=== PATIENT | female | born 1965 | race Caucasian/White ===

== ENCOUNTER 2017-10-11 08:14 | Emergency (ER) | payer BC ==
[2017-10-11 08:26] VITALS: BP 141/82
--- NOTE | 2017-10-11 08:47 | UC ---
Respiratory Complaint HPI - HPI Summary HPI Summary: Patient presents with a past medical history of allergies, she does receive allergy shots. She presents today with 3-5 day onset complaints of sinus pain, pressure and post nasal drip, sore throat, and now chest congestion, and productive cough. She is taking Claritin in the morning and Benadryl at bedtime for her symptoms. She states however that her symptoms continue to get worse. She denies any fever, chills, chest pain, shortness of breath. - History of Current Complaint Chief Complaint: UCGeneralIllness Stated Complaint: SINUS AND CHEST CONGESTION Time Seen by Provider: 10/11/17 08:34 Hx Obtained From: Patient Hx Last Menstrual Period: hysterectomy ?: No Onset/Duration: Gradual Onset, Lasting Days Severity Initially: Mild Severity Currently: Moderate Pain Intensity: 5 Character: Cough: Productive Aggravating Factors: Nothing Alleviating Factors: Nothing Associated Signs And Symptoms: Positive: URI, Nasal Congestion, Sinus Discomfort - Risk Factors Pulmonary Embolism Risk Factors: Negative Cardiac Risk Factors: Negative Pseudomonas Risk Factors: Negative Tuberculosis Risk Factors: Negative - Allergies/Home Medications Allergies/Adverse Reactions: Allergies Allergy/AdvReac Type Severity Reaction Status Date / Time cefuroxime [From Ceftin] Allergy Rash And Verified 10/11/17 08:27 Itching Home Medications: Home Medications Citalopram TAB* [Celexa TAB*] 20 mg PO DAILY 10/11/17 [History Confirmed ] Fexofenadine (NF) [Radha 180 (NF)] 180 mg PO DAILY 10/11/17 [History Confirmed 10/11/17] Montelukast Sodium TAB* [Singulair 10 MG TAB*] 10 mg PO DAILY 10/11/17 [History Confirmed 10/11/17] PMH/Surg Hx/FS Hx/Imm Hx Previously Healthy: Yes Other History Of: Negative For: HIV, Hepatitis B, Hepatitis C, Anticoagulant Therapy - Surgical History Surgical History: Yes Surgery Procedure, Year, and Place: hysterectomy 2009. oral surgery. gall bladder removal - Family History Known Family History: Positive: Hypertension - Social History Occupation: Retired Lives: Alone Alcohol Use: None Substance Use Type: None Smoking Status (MU): Never Smoked Tobacco Review of Systems Constitutional: Negative Skin: Negative Eyes: Negative ENT: Sore Throat, Ear Ache, Nasal Discharge, Sinus Congestion, Sinus Pain/ Tenderness Respiratory: Negative Cardiovascular: Negative Gastrointestinal: Negative Genitourinary: Negative Motor: Negative Neurovascular: Negative Musculoskeletal: Negative Neurological: Negative Psychological: Negative Is Patient Immunocompromised?: No All Other Systems Reviewed And Are Negative: Yes Physical Exam Triage Information Reviewed: Yes Appearance: Well-Appearing Vital Signs: Initial Vital Signs Temp 97.9 F 10/11/17 08:22 Pulse 95 10/11/17 08:22 Resp 18 10/11/17 08:22 BP 141/82 10/11/17 08:22 Pulse Ox 97 10/11/17 08:22 Vital Signs Reviewed: Yes Eye Exam: Normal ENT: Positive: Nasal congestion, Nasal drainage, Sinus tenderness Neck exam: Normal Respiratory Exam: Normal Cardiovascular Exam: Normal Abdominal Exam: Normal Musculoskeletal Exam: Normal Skin Exam: Normal UC Diagnostic Evaluation - Laboratory O2 Sat by Pulse Oximetry: 97 Respiratory Course/Dx - Course Course Of Treatment: Patient presents with an exacerbation of her seasonal allergies, with assoicated sinusitis. She has normal vital signs, and was in no extremous. She was prescribed augmentin 500 mg bid x 10 days, and prednisone 20 mg by mouth bid x 5 days. I also recommend that she use nasonex nasal spray. If her symptoms worsen, persist, or new symtpoms devloped she was told to follow up with her PCP, or [employer]. - Differential Dx/Diagnosis Differential Diagnosis/HQI/PQRI: Sinusitis, Other - allergic rhinitis Provider Diagnoses: allergic rhinitis. sinusitis Discharge - Sign-Out/Discharge Documenting (check all that apply): Discharge/Admit/Transfer - Discharge Plan Condition: Stable Disposition: HOME Prescriptions: Amoxicillin/Clavulanate TAB* [Augmentin TAB 500 mg*] 500 mg PO BID #20 tab predniSONE TAB* [Deltasone TAB*] 20 mg PO BID #10 tab Patient Education Materials: Sinusitis (ED) Referrals: Tiffanie Pham MD [Primary Care Provider] - - Billing Disposition and Condition Condition: STABLE Disposition: HOME
== END 2017-10-11 08:45 | disposition home or self-care (01) ==
LOC: UCEAST 08:14
DX: J30.9 Allergic rhinitis, unspecified (principal); J32.9 Chronic sinusitis, unspecified; Z88.1 Allergy status to other antibiotic agents
CPT/HCPCS: 99212; G0463

== ENCOUNTER 2019-05-31 17:57 | Emergency (ER) | payer BC ==
--- OUTSIDE RECORDS SUMMARY | 2019-05-31 18:03 | XMS REPORT | Continuity of Care Document ---
:1965 External Reference #:[id number] Author Name Anjali Polk MD Address [address] [place] [address] Problems Active Problems Provider Date Diverticular disease of colon Onset: 12/05/2015 Allergic rhinitis Onset: 06/23/2014 Social History Type Date Description Comments Sex Unknown Tobacco Use Start: Unknown End: Unknown Patient is a former smoker Smoking Status Reviewed: 05/30/19 Patient is a former smoker Allergies, Adverse Reactions, Alerts Active Allergies Reaction Severity Comments Date Ceftin No Reaction Indicated 02/04/2019 Medications Active Medications SIG Qnty Indications Ordering Provider Date Ipratropium [place] take 2 sprays in 15ml J06.9 Anjali Polk, 05/30/2019 each nostril 0.06% Solution every 6 hours as needed Venlafaxine HCL ER 1 daily oral 90tabs JENNIFER Aly 07/16/2018 75mg Tablets ER 24HR Montelukast Sodium Oral; Take 1 90tabs Unknown 06/14/2018 10mg Tablet Daily Tablets Zyrtec Allergy 1 daily Oral Unknown 05/19/2018 10mg Capsules Immunizations CPT Code Status Date Vaccine Lot # [id number] Given 09/13/2018 Shingrix - Shingles vaccine, Herpes Zoster 80112 Given 03/28/2018 Flu < 65 years 01808 Given 03/06/2017 Flu < 65 years 79433 Given 09/25/2015 Tdap - Boostrix/Adacel 59170 Given 03/02/2015 Flu < 65 years 87255 Given 03/06/2014 Flu < 65 years 91582 Given 03/07/2013 Flu < 65 years 85012 Given 04/02/2012 Flu < 65 years Vital Signs Date Vital Result Comment 05/30/2019 8:59am BP Systolic 138 mmHg BP Diastolic 92 mmHg Height 67 inches 5'7" Weight 206.00 lb Heart Rate 84 /min Body Temperature 98.3 F O2 % BldC Oximetry 95 % BMI (Body Mass Index) 32.3 kg/m2 08/05/2018 3:26pm BP Systolic 130 mmHg Heart Rate 75 /min Body Temperature 97.7 F O2 % BldC Oximetry 99 % Results Test Acquired Date Facility Test Result H/L Range Note Laboratory test 05/30/2019 [facility] Cytology <pending> finding [address] [place] [address] [phone] Procedures Date Code Description Status 05/30/2019 75318 Brief Emotional/Behav Assessment W/ Scoring Doc Per Completed Standard Inst Medical Devices Description No Information Available Encounters Type Date Location Provider Dx Diagnosis Office Visit 05/30/2019 [facility] Anjali Polk MD Z00.00 Encntr for general 9:00a adult medical exam w/o abnormal findings Z13.1 Encounter for screening for diabetes mellitus Z13.220 Encounter for screening for lipoid disorders J06.9 Acute upper respiratory infection, unspecified Assessments Date Code Description Provider 05/30/2019 Z00.00 Encounter for general adult medical examination Anjali Polk MD without abnormal findings 05/30/2019 Z13.1 Encounter for screening for diabetes mellitus Anjali Polk MD 05/30/2019 Z13.220 Encounter for screening for lipoid disorders Anjali Polk MD 05/30/2019 J06.9 Acute upper respiratory infection, unspecified Anjali Polk MD Plan of Treatment 05/30/2019 - Anjali Polk MDZ00.00 Encounter for general adult medical examination without abnormal [id number] Encounter for screening for diabetes mellitusNew Labs:Basic Metabolic Panel, Ordered: 05/30/19Z13.220 Encounter for screening for lipoid disordersNew Labs:Lipid Profile (Trig/Chol/HDL), Ordered: 05/30/19J06.9 Acute upper respiratory infection, unspecifiedNew Medication: Ipratropium [place] 0.06 % - take 2 sprays in each nostril every 6 hours as needed Functional Status Description No Information Available Mental Status Description No Information Available Referrals Description No Information Available
[2019-05-31 18:18] VITALS: BP 153/88
[2019-05-31] MEDS ORDERED: Acetaminophen TAB* 325 MG PO ONE (18:24)
[2019-05-31 18:54] LABS: Influenza A Molecular NEGATIVE (Negative); Influenza B Molecular NEGATIVE (Negative)
--- NOTE | 2019-05-31 19:21 | UC ---
Respiratory Complaint HPI - HPI Summary HPI Summary: OVER A WEEK OF COUGH, CONGESTION, FATIGUE AND MILD SORE THROAT. IS HAVING HOT FLASHES AND CHILLS BUT IS ALSO GOING THROUGH MENOPAUSE SO IS NOT SURE IF IT'S FROM THAT OR FROM HER ILLNESS. HAS A H/O ASTHMA BUT HAS NOT BEEN USING HER INHALER. NOT FEELING SOB OR WHEEZY. - History of Current Complaint Chief Complaint: UCRespiratory Stated Complaint: SINUS COMPLAINT Time Seen by Provider: 05/31/19 18:34 Hx Obtained From: Patient Hx Last Menstrual Period: hysterectomy Onset/Duration: Gradual Onset, Lasting Days, Still Present Timing: Constant Severity Initially: Moderate Severity Currently: Moderate Pain Intensity: 4 Pain Scale Used: 0-10 Numeric Character: Cough: Nonproductive Aggravating Factors: Nothing Alleviating Factors: Nothing Associated Signs And Symptoms: Positive: Fever, Chills, URI, Nasal Congestion. Negative: Dyspnea, Wheezing - Allergies/Home Medications Allergies/Adverse Reactions: Allergies Allergy/AdvReac Type Severity Reaction Status Date / Time cefuroxime [From Ceftin] Allergy Rash And Verified 05/31/19 18:18 Itching Home Medications: Home Medications Guaifenesin/Dextromethorphan [Cough-Chest Congestion Dm Liq] 177 ml PO Q12HR [History Confirmed 05/31/19] Venlafaxine CAP (NF) [Effexor CAP (NF)] 75 mg PO DAILY 05/31/19 [History Confirmed 05/31/19] PMH/Surg Hx/FS Hx/Imm Hx Respiratory History: Asthma Other History Of: Negative For: HIV, Hepatitis B, Hepatitis C, Anticoagulant Therapy - Surgical History Surgical History: Yes Surgery Procedure, Year, and Place: hysterectomy 2008. oral surgery. gall bladder removal - Family History Known Family History: Positive: Hypertension - Social History Alcohol Use: None Substance Use Type: None Smoking Status (MU): Never Smoked Tobacco Review of Systems All Other Systems Reviewed And Are Negative: Yes Constitutional: Positive: Fever, Chills, Fatigue ENT: Positive: Sore Throat, Nasal Discharge Respiratory: Positive: Cough Cardiovascular: Positive: Negative Gastrointestinal: Positive: Negative Physical Exam Triage Information Reviewed: Yes Appearance: Well-Appearing, No Pain Distress, Well-Nourished Vital Signs: Initial Vital Signs Temp 101.9 F 05/31/19 18:13 Pulse 120 05/31/19 18:13 Resp 18 05/31/19 18:13 BP 153/88 05/31/19 18:13 Pulse Ox 95 05/31/19 18:13 Laboratory Tests 05/31/19 18:43 Influenza A (Rapid) Negative Influenza B (Rapid) Negative Vital Signs Reviewed: Yes Eyes: Positive: Conjunctiva Clear ENT: Positive: Hearing grossly normal, Pharynx normal, TMs normal Neck: Positive: Supple, Nontender, No Lymphadenopathy Respiratory Exam: Normal Cardiovascular: Positive: Tachycardia Abdomen Description: Positive: Soft Musculoskeletal: Positive: No Edema Neurological: Positive: Alert Psychological: Positive: Age Appropriate Behavior Skin: Negative: Rashes Respiratory Course/Dx - Course Course Of Treatment: FLU NEGATIVE. SYMPTOMS ARE LIKELY VIRALLY MEDIATED HOWEVER DUE TO THE LENGTH OF TIME OF ILLNESS WILL GO AHEAD AND COVER WITH AN ANTIBIOTIC. I RECOMMENDED PATIENT TRY A SHORT COURSE OF PREDNISONE AND HER ALBUTEROL INHALER PRIOR TO INITIATING ANTIBIOTICS. IF SHE IS NOT IMPROVING WITH THIS TREATMENT SHE WILL FOLLOW-UP WITH HER PCP. - Differential Dx/Diagnosis Provider Diagnosis: Acute bronchitis, Fever Discharge ED - Sign-Out/Discharge Documenting (check all that apply): Patient Departure All imaging exams completed and their final reports reviewed: No Studies - Discharge Plan Condition: Stable Disposition: HOME Prescriptions: Azithromycin 500 mg PO DAILY #5 tablet predniSONE 50 mg TAB [Deltasone 50 mg TAB] 50 mg PO DAILY #5 tab Patient Education Materials: Acute Bronchitis (ED) Referrals: Tiffanie Pham MD [Primary Care Provider] - If Needed Additional Instructions: FLU NEGATIVE. YOUR SYMPTOMS MAY BE VIRALLY MEDIATED BUT GIVEN THE LENGTH OF TIME YOU HAVE BEEN ILL WE WILL COVER YOU WITH ANTIBIOTICS. IF YOU START THE MEDICINE BE SURE TO TAKE IT FOR THE FULL COURSE. REST, HYDRATE, OTC MEDS NEEDED. WILL ALSO TREAT WITH PREDNISONE TO HELP WITH AIRWAY INFLAMMATION. USE YOUR ALBUTEROL INHALER PRESCRIBED. SEEK FOLLOW-UP WITH YOUR PCP IF YOU ARE NOT IMPROVING OVER THE NEXT 1-2 WEEKS. USE OTC AFRIN FOR NASAL CONGESTION IF NEEDED. 2 SPRAYS IN EACH NOSTRIL TWICE DAILY NEEDED. DO NOT USE FOR MORE THAN 3-4 DAYS IN A ROW TO PREVENT DEVELOPING REBOUND CONGESTION. - Billing Disposition and Condition Condition: STABLE Disposition: Home
--- NOTE | 2019-06-01 16:09 | UC ---
- Progress Note Progress Note: COURTESY CALL TO SEE HOW PT IS FEELING. NO ANSWER. LEFT MESSAGE ON VM TO CALL BACK IF ANY QUESTIONS OR CONCERNS. Course/Dx - Diagnoses Provider Diagnoses: Acute bronchitis, Fever Discharge ED - Sign-Out/Discharge Documenting (check all that apply): Post-Discharge Follow Up All imaging exams completed and their final reports reviewed: No Studies - Discharge Plan Condition: Stable Disposition: HOME Prescriptions: Azithromycin 500 mg PO DAILY #5 tablet predniSONE 50 mg TAB [Deltasone 50 mg TAB] 50 mg PO DAILY #5 tab Patient Education Materials: Acute Bronchitis (ED) Referrals: Tiffanie Pham MD [Primary Care Provider] - If Needed Additional Instructions: FLU NEGATIVE. YOUR SYMPTOMS MAY BE VIRALLY MEDIATED BUT GIVEN THE LENGTH OF TIME YOU HAVE BEEN ILL WE WILL COVER YOU WITH ANTIBIOTICS. IF YOU START THE MEDICINE BE SURE TO TAKE IT FOR THE FULL COURSE. REST, HYDRATE, OTC MEDS NEEDED. WILL ALSO TREAT WITH PREDNISONE TO HELP WITH AIRWAY INFLAMMATION. USE YOUR ALBUTEROL INHALER PRESCRIBED. SEEK FOLLOW-UP WITH YOUR PCP IF YOU ARE NOT IMPROVING OVER THE NEXT 1-2 WEEKS. USE OTC AFRIN FOR NASAL CONGESTION IF NEEDED. 2 SPRAYS IN EACH NOSTRIL TWICE DAILY NEEDED. DO NOT USE FOR MORE THAN 3-4 DAYS IN A ROW TO PREVENT DEVELOPING REBOUND CONGESTION. - Billing Disposition and Condition Condition: STABLE Disposition: Home
== END 2019-05-31 19:29 | disposition home or self-care (01) ==
LOC: UCEAST 17:57
DX: J20.9 Acute bronchitis, unspecified (principal); R50.9 Fever, unspecified; J02.9 Acute pharyngitis, unspecified; J45.909 Unspecified asthma, uncomplicated; Z88.1 Allergy status to other antibiotic agents
CPT/HCPCS: 99212; A9270-GY; G0463

== ENCOUNTER 2019-06-10 10:40 | Emergency (ER) | payer BC ==
[2019-06-10 10:47] VITALS: BP 148/86
--- NOTE | 2019-06-10 11:47 | UC ---
Respiratory Complaint HPI - HPI Summary HPI Summary: The patient is a 54-year-old female with a history of asthma that presents here with a greater than 3 week history of cough congestion, wheezing, and sinus pressure and pain. She states that her worst symptom is her sinus pressure and pain as well as significant postnasal drip. At time she has felt feverish. She has been using her rescue inhaler. She was seen early in the course of her symptoms and treated with a short course of prednisone and a Z-Reilly which helped her symptoms. She states that for the past week her symptoms have dramatically worsen. - History of Current Complaint Chief Complaint: UCGeneralIllness Stated Complaint: CONGESTION,COUGH Time Seen by Provider: 06/10/19 11:28 Hx Obtained From: Patient Hx Last Menstrual Period: hysterectomy Onset/Duration: Gradual Onset, Lasting Weeks Timing: Constant Severity Initially: Mild Severity Currently: Moderate Pain Intensity: 4 Pain Scale Used: 0-10 Numeric Character: Cough: Productive Aggravating Factors: Nothing Alleviating Factors: Nothing Associated Signs And Symptoms: Positive: Fever - ?, URI, Nasal Congestion, Sinus Discomfort - Allergies/Home Medications Allergies/Adverse Reactions: Allergies Allergy/AdvReac Type Severity Reaction Status Date / Time cefuroxime [From Ceftin] Allergy Rash And Verified 06/10/19 10:48 Itching PMH/Surg Hx/FS Hx/Imm Hx Previously Healthy: Yes Respiratory History: Asthma, Pneumonia Other History Of: Negative For: HIV, Hepatitis B, Hepatitis C, Anticoagulant Therapy - Surgical History Surgical History: Yes Surgery Procedure, Year, and Place: hysterectomy 2008. oral surgery. gall bladder removal - Family History Known Family History: Positive: Hypertension - Social History Alcohol Use: None Substance Use Type: None Smoking Status (MU): Never Smoked Tobacco Review of Systems All Other Systems Reviewed And Are Negative: Yes Constitutional: Positive: Fever - ??, Fatigue Eyes: Positive: Negative ENT: Positive: Negative, Nasal Discharge, Sinus Congestion Respiratory: Positive: Cough, Other - wheezing Cardiovascular: Positive: Negative Gastrointestinal: Positive: Negative Genitourinary: Positive: Negative Motor: Positive: Negative Neurovascular: Positive: Negative Musculoskeletal: Positive: Negative Neurological: Positive: Negative Psychological: Positive: Negative Physical Exam Triage Information Reviewed: Yes Appearance: Well-Appearing, No Pain Distress, Well-Nourished Vital Signs: Initial Vital Signs Temp 97.9 F 06/10/19 10:42 Pulse 93 06/10/19 10:42 Resp 17 06/10/19 10:42 BP 148/86 06/10/19 10:42 Pulse Ox 98 06/10/19 10:42 Vital Signs Reviewed: Yes Eyes: Positive: Conjunctiva Clear ENT: Positive: Hearing grossly normal, Nasal congestion, Nasal drainage, TMs normal, Sinus tenderness. Negative: Tonsillar swelling, Tonsillar exudate, Trismus, Muffled voice, Hoarse voice Dental Exam: Normal Neck: Positive: Supple, Nontender, No Lymphadenopathy Respiratory: Positive: Lungs clear, Normal breath sounds, No respiratory distress, No accessory muscle use Cardiovascular: Positive: RRR, No Murmur Abdominal Exam: Normal Musculoskeletal: Positive: ROM Intact, No Edema Neurological: Positive: Alert, Muscle Tone Normal Psychological Exam: Normal Skin Exam: Normal Respiratory Course/Dx - Differential Dx/Diagnosis Provider Diagnosis: Acute bronchitis, Acute sinusitis, Elevated BP without diagnosis of hypertension Discharge ED - Sign-Out/Discharge Documenting (check all that apply): Patient Departure All imaging exams completed and their final reports reviewed: No Studies - Discharge Plan Condition: Stable Disposition: HOME Prescriptions: DOXYcycline CAP(*) [DOXYcycline 100MG CAP(*)] 100 mg PO BID #14 cap Fluticasone NASAL SPRAY 50MCG* [Flonase NASAL SPRAY 50MCG*] 2 spray BOTH NARES DAILY #1 btl predniSONE 20 mg TAB [Deltasone 20 MG TAB*] 40 mg PO DAILY #10 tab Patient Education Materials: Sinusitis (ED), Acute Bronchitis (ED) Referrals: Anjali Polk MD [Primary Care Provider] - 1 Week Additional Instructions: Use your rescue inhaler 2 puffs 4x day for 5 days then as needed saline nasal spray : 2 sprays each nostril twice daily followed by flonase warm facial compresses - Billing Disposition and Condition Condition: STABLE Disposition: Home
== END 2019-06-10 11:56 | disposition home or self-care (01) ==
LOC: UCEAST 10:40
DX: J20.9 Acute bronchitis, unspecified (principal); J01.90 Acute sinusitis, unspecified; R03.0 Elevated blood-pressure reading, without diagnosis of hypertension; J45.909 Unspecified asthma, uncomplicated; Z88.1 Allergy status to other antibiotic agents
CPT/HCPCS: 99212; G0463